=== PATIENT | male | born 1940 | race Caucasian/White ===

== ENCOUNTER 2021-04-28 12:27 | Outpatient (CLI) | payer MEDICARE, OTHER ==
--- NOTE | 2021-04-28 16:06 | Ultrasound Report ---
PROCEDURE: Duplex Ext Veins Right INDICATIONS: PAIN IN RIGHT LEG TECHNIQUE: Real-time imaging, as well as color and pulse Doppler interrogation, were performed of the lower extr emity deep veins from the inguinal ligament to the popliteal fossa. COMPARISON: None. FINDINGS: The deep veins are normally compressible, and free of intraluminal thrombus. Color and pu lse Doppler demonstrate normal phasic intraluminal flow. There is normal augmentation response to di stal compression maneuver. No right lower extremity popliteal cyst. IMPRESSION: No evidence of deep vein thrombosis involving the right lower extremity. Reviewed by: Celina Correa MD, PhD on 04/28/2021 4:05 PM PST Approved by: Celina Correa MD, PhD on 04/28/2021 4:05 PM [facility] Station ID: [id number]
== END 2021-04-28 12:28 | disposition home or self-care (01) ==
LOC: DI 12:27
PROVIDERS: ATTEND Internal Medicine
DX: M79.604 Pain in right leg (principal)

== ENCOUNTER 2021-05-01 11:09 | Emergency (ER) | payer MEDICARE, OTHER ==
[2021-05-01 12:26] LABS: BASOPHILS % (AUTO) 0.6 %; EOSINOPHILS # (AUTO) 0.1 10^3/uL (0.0-0.7); EOSINOPHILS % (AUTO) 1.1 %; HCT - HEMATOCRIT 38.4 % (42.0-52.0); HGB - HEMOGLOBIN 12.6 g/dL (14.0-18.0); LYMPHOCYTES # (AUTO) 0.8 10^3/uL (1.5-3.5); LYMPHOCYTES % (AUTO) 10.6 %; MEAN CORPUSCULAR HEMOGLOBIN 29.6 pg (27.0-31.0); MEAN CORPUSCULAR HGB CONC 32.8 g/dL (32.0-36.0); MEAN CORPUSCULAR VOLUME 90.1 fL (80.0-94.0); MEAN PLATELET VOLUME 9.7 fL (7.4-11.4); MONOCYTES # (AUTO) 0.7 10^3/uL (0.0-1.0); MONOCYTES % (AUTO) 9.1 %; NEUTROPHILS # (AUTO) 5.6 10^3/uL (1.5-6.6); NEUTROPHILS % (AUTO) 78.5 %; PLT - PLATELET COUNT 238 10^3/uL (130-450); PT - PROTHROMBIN TIME 11.7 secs (9.9-12.6); RED BLOOD COUNT 4.26 10^6/uL (4.70-6.10); RED CELL DISTRIBUTION WIDTH 12.2 % (12.0-15.0); WHITE BLOOD COUNT 7.2 x10^3/uL (4.8-10.8)
[2021-05-01 12:31] LABS: CREATININE 1.1 mg/dL (0.6-1.2)
--- NOTE | 2021-05-01 12:32 | Ultrasound Report ---
PROCEDURE: Duplex Ext Veins Right INDICATIONS: RLE pain TECHNIQUE: Real-time imaging, as well as color and pulse Doppler interrogation, were performed of the lower extr emity deep veins from the inguinal ligament to the popliteal fossa. COMPARISON: None. FINDINGS: The deep veins are normally compressible, and free of intraluminal thrombus. Color and pu lse Doppler demonstrate normal phasic intraluminal flow. There is normal augmentation response to di stal compression maneuver. IMPRESSION: No DVT in the right lower extremity. Reviewed by: Richmond Richter on 05/01/2021 12:31 PM PST Approved by: Richmond Richter on 05/01/2021 12:31 PM PST Station ID: [id number]
--- NOTE | 2021-05-01 13:43 | ED Physician Documentation ---
PD HPI LOWER EXT INJURY - Stated complaint Stated Complaint: R LEG PX - Chief complaint Chief Complaint: Ext Problem - Additional information Additional information: She is 80-year-old male presenting with right leg pain. Endorses for right leg pain radiating up and down the leg that has been getting worse for the last few days. Denies any known trauma to the leg but does report that yesterday while walking upstairs his right knee "gave out". Does report that he followed up with his primary care doctor Saturday of this week for similar symptoms and at that time had negative ultrasonography. Has been able to ambulate with ease but does report that occasionally he uses a cane or walker at home. Denies any fever, chills, saddle paresthesias, weight loss, loss of bowel bladder control. Review of Systems Ten Systems: 10 systems reviewed and negative Constitutional: denies: Fever Eyes: denies: Loss of vision Ears: denies: Loss of hearing Nose: denies: Rhinorrhea / runny nose Throat: denies: Dental pain / toothache Cardiac: denies: Chest pain / pressure GI: denies: Abdominal Pain, Nausea, Vomiting Musculoskeletal: reports: Back pain Neurologic: denies: Generalized weakness PD PAST MEDICAL HISTORY - Present Medications Home Medications: Ambulatory Orders Medication Instructions Recorded Confirmed Acetaminophen [Tylenol] 650 mg PO Q6H PRN #30 tablet 05/01/21 Ibuprofen [Motrin] 800 mg PO Q8H PRN #30 tablet 05/01/21 - Allergies Allergies/Adverse Reactions: Allergies Allergy/AdvReac Type Severity Reaction Status Date / Time No Known Drug Allergies Allergy Verified 05/01/21 11:25 PD ED PE NORMAL - General General: Alert and oriented X 3 - HEENT HEENT: Atraumatic - Neck Neck: Supple, no meningeal sign - Cardiac Cardiac: RRR - Respiratory Respiratory: No respiratory distress - Abdomen Abdomen: Normal bowel sounds - Derm Derm: Normal color - Extremities Extremities: No deformity, No tenderness to palpate, Normal ROM s pain, No edema, No calf tenderness / cord Results - Vitals Vitals: Vital Signs - 24 hr 05/01/21 05/01/21 11:21 15:02 Temperature 36.4 C L 36.4 C L Heart Rate 104 H 80 Respiratory 16 18 Rate Blood Pressure 183/118 H 141/93 H O2 Saturation 100 99 Oxygen O2 Source Room air - Labs Labs: Laboratory Tests 05/01/21 05/01/21 05/01/21 12:14 12:14 12:14 WBC 7.2 RBC 4.26 L Hgb 12.6 L Hct 38.4 L MCV 90.1 MCH 29.6 MCHC 32.8 RDW 12.2 Plt Count 238 MPV 9.7 Neut # (Auto) 5.6 Lymph # (Auto) 0.8 L Assumption # (Auto) 0.7 Eos # (Auto) 0.1 Baso # (Auto) 0.0 Absolute Nucleated RBC 0.00 Nucleated RBC % 0.0 PT 11.7 INR 1.0 Sodium 134 L Potassium 4.0 Chloride 98 L Carbon Dioxide 26 Anion Gap 10.0 BUN 19 Creatinine 1.1 Estimated GFR (MDRD) 64 L Glucose 292 H Calcium 9.0 PD MEDICAL DECISION MAKING - ED course Complexity details: d/w patient ED course: Patient is 81-year-old male presenting to the emergency department with right leg pain. Afebrile, hemodynamically stable on arrival to the emergency department. Noted to be able to ambulate with ease in the emergency department. Denied any red flags such as fever, worsening back pain, saddle paresthesias, loss of bowel or bladder control. Ultrasonography performed in the emergency department was negative for acute DVT. Patiently patient denied any replicative bowel symptoms with physical activity as one would expect with arterial claudication. Although I do believe that this is still possible there was no indication of acute arterial compromise in the emergency department. Most likely patient has musculoskeletal injury. I instructed the patient in the use of regular time to Motrin and Tylenol at home for pain control. Additionally I encouraged him to use his walker or cane at all times while his leg is healing. I encouraged careful follow-up with primary care or return to the emergency department for new or worsening symptoms Departure - Departure Disposition: Home, Self Care Clinical Impression: Pain of lower extremity Condition: Good Instructions: ED Strain Muscle Ext Prescriptions: Ibuprofen [Motrin] 800 mg PO Q8H PRN #30 tablet PRN Reason: PAIN &/OR FEVER Acetaminophen [Tylenol] 650 mg PO Q6H PRN #30 tablet PRN Reason: PRN PAIN &/OR FEVER Comments: Thank you for allowing us to care for you today at [facility]. I would like you to begin using regularly scheduled Motrin and Tylenol at home for pain control. I also strongly recommend continuous use of either a cane or walker to help with your ambulation. The ultrasound performed in the emergency department today did not show any blood clot. It is however importantly continue to follow-up carefully with your primary care doctor while your leg continues to heal. If it anytime you have any new or worsening symptoms please not hesitate to return to the emergency department. Your prescriptions were sent electronically to [facility]. Discharge Date/Time: 05/01/21 15:39
[2021-05-01 15:03] VITALS: BP 141/93
== END 2021-05-01 15:39 | disposition home or self-care (01) ==
LOC: ED 11:09
DX: M79.661 Pain in right lower leg (principal)
CPT/HCPCS: 36415; 80048; 85025; 85610; 99282; 99283

== ENCOUNTER 2021-06-08 09:45 | Outpatient (CLI) | payer MEDICARE, OTHER ==
--- NOTE | 2021-06-08 12:42 | MRI Report ---
PROCEDURE: Knee RT W/O INDICATIONS: R KNEE PAIN TECHNIQUE: Noncontrast sagittal PD fast spin echo and T2 fast spin echo with fat saturation, sagittal 3-D gradie nt sequence with fat saturation; coronal T1 spin echo and PD fast spin echo with fat saturation, and axial PD fast spin echo with fat saturation through the knee. COMPARISON: None. Findings: Medial meniscus: Blunting of the free edge (901-24), which may reflect radial tear or prior meniscect layton. Posterior horn intrasubstance degeneration. Lateral meniscus: No surface communication/tear. LIGAMENTS/TENDONS: Patellar tendon: Intermediate signal within the proximal aspect of the patella tendon, compatible wit h tendinopathy. Distal quadriceps tendon: Intact. Hoffa's fat pad: No evidence of fibrosis or mass. PCL: Intact. ACL: Intact. Lateral collateral ligament complex: No significant abnormality. Posterolateral corner: No significant abnormality. Medial collateral ligament: No significant abnormality.. MARROW: 5 x 8.4 mm T2 hyperintense lesion in the medial femoral condyle, compatible with osteochondr al injury. CARTILAGE: Signal heterogeneity with fissuring and thinning of the medial compartment hyaline cartila ge. Marked deficiency with underlying subchondral edema involving the patella apex and lateral facet. Muscles: No significant edema or atrophy. Joint effusion/Carrillo's cyst: Small joint effusion. 2.1 x 1.4 x 3.4 cm popliteal fossa T2 hyperintense lesion, most consistent with a cyst. Subcutaneous soft tissues: No significant edema. IMPRESSION: 1. Possible radial tear in the medial meniscus, posterior horn. 2. Tendinopathy in the proximal aspect of the patella tendon. 3. 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 4. Chondromalacia of the medial femoral condyle and patella. 5. Small joint effusion. 6. Carrillo's cyst as detailed above. Reviewed by: Emerson Lott MD on 06/08/2021 12:41 PM PST Approved by: Emerson Lott MD on 06/08/2021 12:41 PM PST Station ID: [id number]
== END 2021-06-08 09:46 | disposition home or self-care (01) ==
LOC: DI 09:45
PROVIDERS: ATTEND Internal Medicine
DX: M71.21 Synovial cyst of popliteal space [Baker], right knee (principal); M25.461 Effusion, right knee; M94.261 Chondromalacia, right knee; M23.91 Unspecified internal derangement of right knee; M67.961 Unspecified disorder of synovium and tendon, right lower leg; M23.321 Other meniscus derangements, posterior horn of medial meniscus, right knee